=== PATIENT | female | born 1980 | race Caucasian/White ===

== ENCOUNTER 2021-03-29 18:39 | Emergency (ER) | payer OTHER ==
[2021-03-29] MEDS ORDERED: PERCOCET 5-3251 EACH PO ×3 (22:11→22:20)
[2021-03-29] MEDS ORDERED: MEDROL 4MG DOSEP4 MG PO (22:11)
[2021-03-29] MEDS ORDERED: IBUPROFEN800 MG PO (22:11)
[2021-03-29] MEDS ORDERED: CYCLOBENZAPRINE10 MG PO (22:11)
== END 2021-03-29 22:40 | disposition home or self-care (01) ==
LOC: FER 18:39
DX: S39.012A Strain of muscle, fascia and tendon of lower back, initial encounter (principal); S20.211A Contusion of right front wall of thorax, initial encounter; M54.2 Cervicalgia; M79.601 Pain in right arm; V48.6XXA Car passenger injured in noncollision transport accident in traffic accident, initial encounter; Y92.410 Unspecified street and highway as the place of occurrence of the external cause
CPT/HCPCS: 71046; 72110; 96372; J1100; J1885